=== PATIENT | female | born 1980 | race Caucasian/White ===

== ENCOUNTER 2017-12-31 14:10 | Outpatient (CLI) | payer BC ==
[2017-12-31 14:57] LABS: Hemoglobin 12.2 g/dL (12.0-16.0); Mean Corpuscular HGB CONC 33.8 g/dL (32.0-36.0); Mean Corpuscular Hemoglobin 29.8 pg (27.0-31.0); Mean Corpuscular Volume 88.1 fl (81.0-99.0); Mean Platelet Volume 6.6 fL (7.4-10.4); Platelet Count 404 thou/uL (130-400); RBC Distribution Width 10.8 % (11.5-14.5); Red Blood Cell (RBC) Count 4.08 mill/uL (4.20-5.40)
[2017-12-31 15:04] LABS: BHCG - Serum Negative (NEGATIVE); Pregs Control Background? CLEAR/WHITE (CLR/WHITE); Pregs Control Bar Appear? YES (CONTROL BAR)
== END 2017-12-31 14:11 | disposition home or self-care (01) ==
LOC: LABBT 14:10
PROVIDERS: ATTEND Obstetrics & Gynecology
DX: Z01.812 Encounter for preprocedural laboratory examination (principal); N92.0 Excessive and frequent menstruation with regular cycle; N94.6 Dysmenorrhea, unspecified; Z90.722 Acquired absence of ovaries, bilateral
CPT/HCPCS: 84703; 85027; 86850; 86900; 86901

== ENCOUNTER 2017-12-31 16:30 | Inpatient (IN) | payer BC ==
[2017-12-31 14:49] VITALS: BMI 27.9
--- NOTE | 2018-01-03 23:34 | HP ---
DATE OF ADMISSION: 01/04/2018 REASON FOR ADMISSION: Dysmenorrhea and menorrhagia. SCHEDULED PROCEDURE: Total laparoscopic hysterectomy and bilateral salpingectomy, Da Stu robot-ass ist. HISTORY OF PRESENT ILLNESS: Ms. Alvarado is a 37-year-old 3, para 3, status post x3, statu s post Essure in 2010, who presented with worsening dysmenorrhea and menorrhagia. After a long discu ssion about options including IUD, endometrial ablation, and hysterectomy, the patient desires to mov e forward definitive surgery with total laparoscopic hysterectomy and bilateral salpingectomy. OB AND CHANGE MANAGEMENT ANALYST HISTORY: x3, largest 8 pounds 6 ounces in 2009. No history of dysplasia status post Essure. 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 PAST MEDICAL HISTORY: None. PAST SURGICAL HISTORY: Essure. SOCIAL HISTORY: Denies tobacco, alcohol, or IV drug abuse. MEDICATIONS: multivitamin. ALLERGIES: None. FAMILY HISTORY AND REVIEW OF SYSTEMS: Noncontributory. PHYSICAL EXAMINATION: GENERAL: White female, 5 feet 5, 168, BMI 28. VITAL SIGNS: BP 120/80. HEENT: Within normal limits. LUNGS: Clear to auscultation bilaterally. HEART: Regular rhythm. BREASTS: Masses bilaterally. ABDOMEN: Soft, nontender. No rebound or guarding. PELVIC: Vulva without lesions. Vagina without discharge. Cervix parous. Uterus anteverted, 8-week size, slightly boggy. No adnexal masses noted. EXTREMITIES: Without clubbing, cyanosis, or edema. IMPRESSION: Persistent dysmenorrhea and menorrhagia, status post permanent sterilization with likely adenomyosis. PLAN: Discussed with patient options including hysterectomy, endometrial ablation, and IUD. Because of the patient's history of bicornuate uterus, she is likely best managed by definitive surgical car e. Patient agrees with this and desires to proceed with total laparoscopic hysterectomy, bilateral s alpingectomy. We will perform aforementioned surgery on 01/04/2018 with Da Stu robot-assist.
[2018-01-04] MEDS ORDERED: Midazolam HCl 2 mg/2 ml Vial ONE ×2 (06:35→07:12)
[2018-01-04] MEDS ORDERED: Fentanyl 250 MCG/5 ML VIAL ONE (06:35)
[2018-01-04] MEDS ORDERED: CEFAZOLIN/Water 2 GM/20 ML SYRINGE ONE (06:37)
[2018-01-04] MEDS ORDERED: Bupivacaine HCl 0.5%/Epinephrine 1:200,000/PF 30 ml Vial ONE (06:58)
[2018-01-04] MEDS ORDERED: Scopolamine 1.5 mg/72 hour Patch ONE (07:12)
[2018-01-04] MEDS ORDERED: Promethazine HCl 25 MG/ML VIAL IM PRN ×2 (08:15→12:04)
[2018-01-04] MEDS ORDERED: Meperidine HCl/PF 25 MG/ML VIAL SLOW IVP PRN (08:15)
[2018-01-04] MEDS ORDERED: Promethazine HCl 25 MG/ML VIAL SLOW IVP PRN (08:15)
[2018-01-04] MEDS ORDERED: Ondansetron HCl/PF 4 MG/2 ML Vial IVP PRN ×2 (08:15→12:04)
[2018-01-04] MEDS ORDERED: Ropivacaine HCl/PF 750 ML in Premix Bag 1 BAG NERVE BLCK SCH (08:15)
[2018-01-04] MEDS ORDERED: Fentanyl 100 MCG/2 ML VIAL ONE ×2 (09:49→10:22)
[2018-01-04] MEDS ORDERED: Ketorolac Tromethamine 30 MG/ML VIAL IVP SCH (12:00)
[2018-01-04] MEDS ORDERED: diphenhydrAMINE 25 MG CAP PO PRN (12:04)
[2018-01-04] MEDS ORDERED: Morphine 4 MG/ML Carpuject SLOW IVP PRN (12:04)
[2018-01-04] MEDS ORDERED: HYDROcodone/Acetaminophen 10/325 mg Tablet PO PRN ×2 (12:04)
[2018-01-04] MEDS ORDERED: Morphine 5 MG/ML SYRINGE SLOW IVP PRN ×2 (12:13)
[2018-01-04] MEDS: Sodium Chloride 0.9% 1,000 ML IV SCH ×2 (12:39→21:20)
[2018-01-04] MEDS: Ketorolac Tromethamine 30 MG/ML VIAL IVP SCH ×2 (15:07→21:14)
[2018-01-04] MEDS ORDERED: Lidocaine 1% PF 5 ML VIAL ONE (17:02)
[2018-01-04] MEDS ORDERED: Glycopyrrolate 0.2 MG/ML 5 ML SYRINGE ONE (17:02)
[2018-01-04] MEDS ORDERED: Dexamethasone 20 MG/5 ML VIAL ONE (17:02)
[2018-01-04] MEDS ORDERED: PHENYLEPHRINE-NS 100 MCG/ML 10 ML SYRINGE ONE (17:02)
[2018-01-04] MEDS ORDERED: Ketorolac Tromethamine 30 MG/ML VIAL ONE (17:02)
[2018-01-04] MEDS ORDERED: PROPOFOL 200 MG/20 ML VIAL ONE (17:02)
[2018-01-05] MEDS: Ketorolac Tromethamine 30 MG/ML VIAL IVP SCH ×2 (03:24→09:23)
[2018-01-05 03:31] VITALS: BP 96/54; TEMP 98.3
[2018-01-05] MEDS: Sodium Chloride 0.9% 1,000 ML IV SCH (03:47)
[2018-01-05 06:00] LABS: Hemoglobin 11.5 g/dL (12.0-16.0); Mean Corpuscular HGB CONC 34.2 g/dL (32.0-36.0); Mean Corpuscular Hemoglobin 30.3 pg (27.0-31.0); Mean Corpuscular Volume 88.7 fl (81.0-99.0); Mean Platelet Volume 6.6 fL (7.4-10.4); Platelet Count 340 thou/uL (130-400); RBC Distribution Width 10.9 % (11.5-14.5); White Blood Cell (WBC) Count 12.3 thou/uL (4.8-10.8)
--- NOTE | 2018-01-05 07:18 | DIS ---
IN-HOSPITAL PROCEDURES: Total laparoscopic hysterectomy, bilateral salpingectomy with da Stu robot -assist. SUMMARY OF HOSPITAL COURSE: Ms. Alvarado underwent the aforementioned procedure at approximately 0830 on 01/04/2018. She had an estimated blood loss of 100 mL with no recognized intraoperative complicat ions. POSTOPERATIVE COURSE: T-max was 98.7, temperature now 98.3, pulse 88, respirations 16, blood pressur e 196/54. Urine output, the patient voided 1000 mL and had 1300 mL via Almeida prior to discontinuatio n approximately 4 hours postoperatively. She is tolerating p.o. well. Hematocrit POD #1 is 38.8%, n ormal platelet count. PHYSICAL EXAMINATION: GENERAL: White female in no acute distress. HEENT: Within normal limits. LUNGS: Clear to auscultation bilaterally. HEART: Regular rhythm. ABDOMEN: Soft and nontender. Well healed incisions x4 without erythema or significant bruising. He r perineum is dry. EXTREMITIES: Without clubbing, cyanosis or edema. Pathology is pending. IMPRESSION: Doing well status post TLH, bilateral salpingectomy with ON-Q ropivacaine pump for posto perative, post-discharge analgesia. PLAN: Discharge home. Postop medications called out preoperatively. Discontinue with ON-Q. Follow up at [facility] [place] in 5-6 weeks.
--- NOTE | 2018-01-05 12:56 | OP ---
DATE OF PROCEDURE: 01/04/2018 PREOPERATIVE DIAGNOSES: 1. Dysmenorrhea. 2. Menorrhagia. 3. Bicornuate uterus. POSTOPERATIVE DIAGNOSES: 1. Dysmenorrhea. 2. Menorrhagia. 3. Bicornuate uterus. PROCEDURE: Total laparoscopic hysterectomy with bilateral salpingectomy. SURGEON: Joo Rose M.D. VETERINARY POULTRY INSPECTOR: Meenu Schaffer M.D. ESTIMATED BLOOD LOSS: 100 mL. DRAINS: Almeida to gravity. MEDICATIONS: Two grams Ancef preincision. DVT PROPHYLAXIS: SCDs. OPERATIVE FINDINGS: 1. Mildly bicornuate uterus. 2. Normal appearing ovaries bilaterally. 3. Right fallopian tube perforation Essure device. 4. Left appropriate location of the Essure device. 5. Hemostasis, clear urine, counts correct at the end of the procedure. DISPOSITION: To the recovery room in good condition. DESCRIPTION OF OPERATIVE PROCEDURE: After obtaining proper informed consent, the patient was taken t o the operating room where general endotracheal anesthesia was achieved without difficulty. The chio ent was prepped and draped in dorsal lithotomy position in Trevor stirrups. Bladder drained with a Fo debbie catheter. Sliding speculum revealed a cervix which was grasped at 12 o'clock, sounded to 10 cm a nd a HALLE manipulator placed with a 4 cm vaginal crop farmers and 8 cm obturator without difficulty. S peculum and tenaculum removed and attention turned to the abdominal portion of procedure. Five mL of Marcaine injected at the base of the umbilicus and a 12 mm skin incision made. Veress needle placed inside the abdominal cavity. Confirmation of entry into the peritoneal cavity via saline drop test. Insufflation carried out with carbon dioxide to a max pressure of 15, volume approximately 3.5 lite rs. A 12 mm trocar was then placed which confirmed entry into the peritoneal cavity without trauma t o the underlying viscera. The patient was placed in steep Trendelenburg position. Right and left la teral da Stu trocars were placed under direct visualization as well as an 11 mm physician assistant port in t he right upper quadrant. Findings as noted in the operative findings were noted. Bilateral ureters were identified and noted to be well lateral. 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 The right fallopia n tube was coagulated across its mesosalpinx and amputated and removed through the 12 mm trocar port. The Essure device on the right was removed from its area of being on the serosa of the uterus just adjacent to the fallopian tube on the right and removed through the trocar port as well. The utero-o varian ligament on the patient's right was coagulated and transected to the broad, the round, and the cardinals down to a level just above the uterine vessels. Peritoneum was opened up and dissected ou t to the side wall, allowing the ureter to fall away from the surgical pedicles. Skeletonization of the uterine vessels carried out. The vesicouterine peritoneum incised sharply anteriorly, dissecting the peritoneum and bladder off the lower uterine segment, cervix and upper vagina. Backfilling of t he bladder revealed its location and was noted to be well off the level of the apex of the vagina. C oagulation of the uterine vessels on the right was carried out. Attention was turned to the left whe re again the mesosalpinx was coagulated and transected and the tube removed. The utero-ovarian was t hen coagulated and transected. The broad and the round on that side down to the level of the uterine vessels which were skeletonized and the peritoneum opened up to allow the ureter to drop away toward s the pelvic sidewall. Coagulating and transection of the uterine vessels were carried out on the le ft. Anteriorly, the vagina was entered at 12 o'clock and extended from 12-3, 12-9 posteriorly was en tered at 6 and extended from 6-9 and 6-3 coagulating and transecting at the level of the uterine vess els lastly on each side, amputating, the specimen was then pulled in the vagina to maintain pneumoper itoneum. Suction irrigation carried out. The vagina was closed using a running continuous 0 PDS sut ure Loc in a running continuous manner. Suction irrigation was carried out. Good hemostasis was not ed throughout ON-Q single lumen inch postoperative analgesia pump was placed and primed with bupivaca ine and left in situ after applying Maryanne to all surgical services. Da Stu instruments were remov ed. The robot undocked. The abdomen desufflated of carbon dioxide, trocars were removed x4. Fascia reapproximated at the umbilicus using an 0 Vicryl on a UR-5 needle. Skin reapproximated x4 using 4- 0 Monocryl and Dermabond. Specimen was removed from the vagina, cuff inspected and noted to be dry a nd intact. The patient awakened, extubated, and taken to the recovery room in good condition.
== END 2018-01-05 10:49 | disposition home or self-care (01) | DRG 743 ==
LOC: SURG A 01-04 06:03 → 3SE 01-04 11:46 → EDSTATUS 01-04 16:30
PROVIDERS: ADMIT Obstetrics & Gynecology; ATTEND Obstetrics & Gynecology
PROC: 0UT98ZZ Resection of Uterus, Via Natural or Artificial Opening Endoscopic (ICD-10-PCS; principal; 2018-01-04)
PROC: 0UT78ZZ Resection of Bilateral Fallopian Tubes, Via Natural or Artificial Opening Endoscopic (ICD-10-PCS; 2018-01-04)
PROC: 8E0W8CZ Robotic Assisted Procedure of Trunk Region, Via Natural or Artificial Opening Endoscopic (ICD-10-PCS; 2018-01-04)
DX: N94.6 Dysmenorrhea, unspecified (principal); N92.0 Excessive and frequent menstruation with regular cycle; R20.0 Anesthesia of skin; Q51.3 Bicornate uterus
CPT/HCPCS: 36415; 85027; 88307; A4216; J0131; J0670; J1100; J1885; J2001; J2250; J2704; J2795; J3010